=== PATIENT | male | born 1985 | race Caucasian/White ===

== ENCOUNTER 2017-02-17 15:58 | Emergency (ER) | payer SELFPAY ==
[~2017-02-17] VITALS: Ht 165.1 cm; Wt 63.5 kg
[2017-02-17 15:58] VITALS: BP 137/73
--- NOTE | 2017-02-17 16:27 | PHYS DOC ---
Past Medical History Past Medical History: Schizophrenia Past Surgical History: No Surgical History Alcohol Use: None Drug Use: None Adult General Chief Complaint Chief Complaint: stated SI HPI HPI Patient is a 31 year old male who presents after patient reported to someone that he was suicidal. Patient admits that he said this when he thought he was going to get trouble for attempting to steal Benadryl. Patient reports that he has a history is a for any but denies any time was he thinking that he would hurt himself and would not hurt himself. Patient planning to hitchhike to the [facility]. He declines any further evaluation. He is alert and oriented, steady gait, does not appear to be inebriated. Review of Systems Review of Systems Constitutional: Denies fever or chills [] Eyes: Denies change in visual acuity, redness, or eye pain [] HENT: Denies nasal congestion or sore throat [] Respiratory: Denies cough or shortness of breath [] Cardiovascular: Denies chest pain GI: Denies abdominal pain, nausea, vomiting, bloody stools or diarrhea [] : Denies dysuria or hematuria [] Musculoskeletal: Denies back pain or joint pain [] Integument: Denies rash or skin lesions [] Neurologic: Denies headache, focal weakness or sensory changes [] Allergies Allergies Allergies Coded Allergies Type Severity Reaction Last Updated Verified No Known Drug Allergies 02/17/17 No Physical Exam Physical Exam Constitutional: Well developed, well nourished, no acute distress, non-toxic appearance, sunburn, baseline tremor the patient reports is due to his invegaa injections for his schizophrenia HENT: Normocephalic, atraumatic, bilateral external ears normal, oropharynx moist, no oral exudates, nose normal. [] Eyes: PERRLA, EOMI, conjunctiva normal, no discharge. [] Neck: Normal range of motion, no tenderness, supple, no stridor. [] Cardiovascular:Heart rate regular rhythm, no murmur [] Lungs & Thorax: Bilateral breath sounds clear to auscultation [] Abdomen: Bowel sounds normal, soft, no tenderness, no masses, no pulsatile masses. [] Skin: Warm, dry, no erythema, no rash. [] Back: No tenderness, no CVA tenderness. [] Extremities: No tenderness, no cyanosis, no clubbing, ROM intact, no edema. [] Neurologic: Alert and oriented X 3, normal motor function, normal sensory function, no focal deficits noted. [] Psychologic: Affect normal, judgement normal, mood normal. [] Current Patient Data Vital Signs Vital Signs Date Time Temp Pulse Resp B/P (MAP) Pulse Ox O2 Delivery O2 Flow Rate FiO2 02/17/17 15:58 98.3 87 18 137/73 (94) 95 Room Air 98.3 EKG EKG [] Radiology/Procedures Radiology/Procedures [] Course & Med Decision Making Course & Med Decision Making Pertinent Labs and Imaging studies reviewed. (See chart for details) Pt discharged as he had no health complaints and does not pose any threat to hurting himself. Dragon Disclaimer Dragon Disclaimer This electronic medical record was generated, in whole or in part, using a voice recognition dictation system. Departure Departure Impression: Primary Impression: Schizophrenia Disposition: 01 HOME, SELF-CARE Condition: STABLE Patient Instructions: Schizophrenia Additional Instructions: follow-up with your doctor. TOMMY CISNEROS MD Feb 17, 2017 16:27
== END 2017-02-17 16:35 | disposition home or self-care (01) ==
LOC: ER 15:58
DX: F20.9 Schizophrenia, unspecified (principal)
CPT/HCPCS: 99284